=== PATIENT | male | born 1955 | race Asian ===

== ENCOUNTER 2017-12-07 22:12 | Emergency (ER) | payer MEDICAID ==
[~2017-12-07] VITALS: Ht 172.7 cm; Wt 63.0 kg
[~2017-12-07 22:12] MED LIST: AMIODARONE HCL200 MG ORAL; ATIVAN0.5 MG ORAL; DULCOLAX10 MG RC; K-DUR10 ME1 ORAL; LEVOTHYROXINE50 MCG ORAL; MILK OF MA400 MG/51 ORAL; MYLANTA30 M1 ORAL; TYLENOL650 MG/20. ORAL
[2017-12-07] MEDS ORDERED: Tylenol #3 tab (300mg/30mg) ORAL ONE (22:45)
[2017-12-07] MEDS ORDERED: Tylenol #3 tab (300mg/30mg) ONE (22:47)
[2017-12-07] MEDS ORDERED: ACETAMINOPHEN-1 EAC1 ORAL (23:25)
[2017-12-07 23:30] VITALS: BP 128/68
[2017-12-07 23:40] VITALS: BP 128/68
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
--- NOTE | 2017-12-09 14:47 | Diagnostic Imaging Report ---
Indication: Headache Technique: Contiguous 5 mm thick transaxial imaging of the head obtained in a Siemens Sensation [address] scanner. Soft tissue and bone windows generated. Automatic Exposure Control was utilized. Total Dose length Product (DLP): 1347.[address] Dose Index Volume (CTDIvol): 70.38 mGy Comparison: none Findings: There is mild prominence of the ventricles, basal cisterns, and cerebral sulci consistent with atrophy. Mild, nonspecific, white matter hypoattenuation is noted throughout the brain consistent with chronic small vessel disease. There is no midline shift, edema, acute hemorrhage, mass effect, or abnormal extra-axial fluid collections. Bones and extra osseous soft tissues are unremarkable. Impression: No acute intracranial bleed, mass effect or edema. Mild atrophy of the brain. Nonspecific white matter hypoattenuation probably due to chronic small vessel disease. [facility] has communicated the preliminary results to the Emergency Department. Their findings are largely concordant with this report. The CT scanner at [facility] is accredited by the [employer] and the scans are performed using dose optimization techniques as appropriate to a performed exam including Automatic Exposure control.
== END 2017-12-07 23:40 | disposition home or self-care (01) ==
LOC: EMR 22:34
DX: S09.90XA Unspecified injury of head, initial encounter (principal); V43.52XA Car driver injured in collision with other type car in traffic accident, initial encounter; Y92.410 Unspecified street and highway as the place of occurrence of the external cause; R51 Headache; I10 Essential (primary) hypertension; E11.9 Type 2 diabetes mellitus without complications; Z95.0 Presence of cardiac pacemaker
CPT/HCPCS: 70450; 99284

== ENCOUNTER 2018-09-18 04:53 | Emergency (ER) | payer MEDICAID ==
[~2018-09-18] VITALS: Ht 172.7 cm; Wt 63.0 kg
[~2018-09-18 04:53] MED LIST changes: +ACETAMINOPHEN-1 EAC1 ORAL
[2018-09-18] MEDS ORDERED: GENVOYA TABLET1 EACH PO (05:06)
[2018-09-18] MEDS ORDERED: ASPIR 8181 MG ORAL (05:06)
[2018-09-18 05:21] VITALS: BP 132/80
--- NOTE | 2018-09-18 05:25 | NUR ---
ER Nurse Note: Pt came from home c/o SOB and night sweat since 0400 09/18/18. Pt stated he was sleeping, woke up with night sweats and a possible panic attack. Pt denied pain, no dificulty swollowing, no chest pain, denies headache. Pt has a fake right arm. Pt a&ox4, VSS, O2 at 99% room air, no signs of distress. ERMD at pt side; [facility].
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
--- NOTE | 2018-09-18 06:30 | Diagnostic Imaging Report ---
EXAM: XR Chest, 1 View CLINICAL HISTORY: CP TECHNIQUE: Frontal view of the chest. COMPARISON: 06/07/16 FINDINGS: Lungs: . No dense consolidation. Pleural space: Unremarkable. No pneumothorax. Heart: Upper limits of normal cardiovascular silhouette, unchanged Mediastinum: Unremarkable. Bones/joints: Unremarkable. Vasculature: Mildly tortuous thoracic aorta, unchanged. IMPRESSION: No dense consolidation or effusion. Low lung volume
[2018-09-18] MEDS ORDERED: ATIVAN0.5 MG ORAL (06:45)
[2018-09-18 06:55] VITALS: BP 138/60
--- NOTE | 2018-09-18 06:56 | NUR ---
ER Nurse Note: Pt seen, treated, medically cleared for discharge by ERMD. Discharge instructions and prescription given with repeat verbalzaion by pt and family. Instructed pt to follow up with primary care physican within one week. Pt a&ox4, VSS. ID band removed. Pt ambulated with steady gait; left with all belongings.
== END 2018-09-18 06:56 | disposition home or self-care (01) ==
LOC: EMR 05:25
DX: R06.00 Dyspnea, unspecified (principal); F41.9 Anxiety disorder, unspecified; R07.89 Other chest pain; E11.9 Type 2 diabetes mellitus without complications
CPT/HCPCS: 71045; 93005; 99283

== ENCOUNTER 2019-03-28 06:03 | Emergency (ER) | payer MEDICAID ==
[~2019-03-28] VITALS: Ht 172.7 cm; Wt 63.0 kg
[~2019-03-28 06:03] MED LIST changes: +ASPIR 8181 MG ORAL; +GENVOYA TABLET1 EACH PO
[2019-03-28 06:14] VITALS: BP 132/79
[2019-03-28] MEDS ORDERED: ATIVAN1 MG ORAL (06:21)
--- NOTE | 2019-03-28 06:22 | Emergency Room Report ---
History of Present Illness General Chief Complaint: General Complaint Source: Patient Present Illness HPI This is a 63-year-old male with a history of HIV. Is well controlled on his low is undetectable. His CD4 count is over 700. Patient presents with shortness of breath. He also has history of anxiety. He woke up feeling anxious and could not breathe. Onset was about 30 minutes ago. No chest pain. No nausea no vomiting. Does have some palpitation. Similar symptom last time he was here. He said he got better when he start breathing into a paper bag. Allergies: Coded Allergies: No Known Allergies (Unverified , 09/07/15) Patient History Past Medical History: see triage record, old chart reviewed, HIV Past Surgical History: other Pertinent Family History: none Social History: Denies: smoking Immunizations: other Reviewed Nursing Documentation: PMH: Agreed; PSxH: Agreed Nursing Documentation-PMH Hx Hypertension: Yes - PANIC ATTACK Hx Pacemaker: Yes Hx Diabetes: Yes Hx Gastrointestinal Problems: Yes Hx Cerebrovascular Accident: Yes Review of Systems Eye: Denies: eye pain, blurred vision ENT: Denies: ear pain, nose congestion, throat swelling Respiratory: Reports: shortness of breath; Denies: cough Cardiovascular: Reports: palpitations; Denies: chest pain Gastrointestinal: Denies: abdominal pain, diarrhea, nausea, vomiting Musculoskeletal: Denies: back pain, joint pain Skin: Denies: rash Neurological: Denies: headache, numbness Endocrine: Denies: increased thirst, increased urine Hematologic/Lymphatic: Denies: easy bruising All Other Systems: negative except mentioned in HPI Physical Exam Vital Signs Date Time Temp Pulse Resp B/P (MAP) Pulse Ox O2 Delivery O2 Flow Rate FiO2 03/28/19 06:08 97.9 52 18 132/79 (96) 98 Room Air Vitals normal Sp02 EP Interpretation: reviewed, normal General Appearance: well appearing, no apparent distress, alert Head: normocephalic, atraumatic Eyes: bilateral eye PERRL, bilateral eye EOMI ENT: hearing grossly normal, normal pharynx Neck: full range of motion, supple, no meningismus Respiratory: chest non-tender, lungs clear, normal breath sounds Cardiovascular #1: regular rate, rhythm, no murmur Gastrointestinal: normal bowel sounds, non tender, no mass, no organomegaly, no bruit, non-distended Musculoskeletal: back normal, gait/station normal, normal range of motion Neurologic: alert, oriented x3 Psychiatric: anxious Medical Decision Making Diagnostic Impression: Primary Impression: Anxiety ER Course Patient presents with anxiety/panic attack. EKG is unremarkable. Clinically no evidence of ACS, PE, dissection to name a few. Will discharge home. EKG Diagnostic Results Rate: normal Rhythm: NSR ST Segments: no acute changes Rhythm Strip Diag. Results EP Interpretation: yes Rate: 55 Rhythm: NSR, no PVC's, no ectopy Last Vital Signs Date Time Temp Pulse Resp B/P (MAP) Pulse Ox O2 Delivery O2 Flow Rate FiO2 03/28/19 06:14 97.9 52 18 132/79 98 Room Air Status: improved Disposition: HOME, SELF-CARE Condition: Stable Scripts Lorazepam* (ATIVAN*) 1 Mg Tablet 1 MG ORAL THREE TIMES A DAY for anxiety, #20 TAB Prov: Gaston Wallace MD 03/28/19 Additional Instructions: Follow-up with your doctor in a week for recheck. Return if symptoms worsen. Gaston Wallace MD Mar 28, 2019 06:22
[2019-03-28 06:26] VITALS: BP 127/74
--- NOTE | 2019-03-28 10:59 | Cardiology Report ---
APPROVED REPORT EKG Measurement Heart [id number] IA [id number] Sinus bradycardia Otherwise normal ECG
== END 2019-03-28 06:26 | disposition home or self-care (01) ==
LOC: EMR 06:20
DX: F41.9 Anxiety disorder, unspecified (principal); I10 Essential (primary) hypertension; E11.9 Type 2 diabetes mellitus without complications; Z95.0 Presence of cardiac pacemaker; Z86.73 Personal history of transient ischemic attack (TIA), and cerebral infarction without residual deficits; B20 Human immunodeficiency virus [HIV] disease
CPT/HCPCS: 93005; 99283